=== PATIENT | female | born 1995 | race African-American/Black ===

== ENCOUNTER → 2020-01-12 | Outpatient (CLI) | payer OTHER | LOC: COL.RAD 13:30 | DX: R56.9 Unspecified convulsions (principal) | CPT/HCPCS: A9585 ==

== ENCOUNTER → 2020-02-22 | Outpatient (CLI) | payer OTHER | LOC: COL.CARD 10:00 | DX: R56.9 Unspecified convulsions (principal) ==

== ENCOUNTER → 2020-04-29 | Outpatient (CLI) | payer OTHER | LOC: ZCOL.LAB 16:59 | DX: R53.83 Other fatigue (principal); M79.10 Myalgia, unspecified site; R51 Headache; Z20.828 Contact with and (suspected) exposure to other viral communicable diseases ==